=== PATIENT | female | born 1935 | race Caucasian/White ===

== ENCOUNTER 2016-03-29 16:33 | Inpatient (IN) | payer MEDICARE, OTHER ==
[~2016-03-29] VITALS: Ht 147.3 cm; Wt 54.7 kg
[~2016-03-29 16:33] MED LIST: ATEN-51 PO; KLO5 PO; LISI10TA2 PO
[2016-03-29 17:43] LABS: BASOPHILS % 0.6 % (0.0-2.0); EOSINOPHILS % 0.5 % (0.0-7.0); HEMOGLOBIN 13.2 g/dl (12.0-16.0); LYMPHOCYTES # 0.5 10^3/ul (0.8-2.9); LYMPHOCYTES % 5.9 % (15.0-51.0); MEAN CORPUSCULAR HEMOGLOBIN 29.8 pg (29.0-33.0); MEAN CORPUSCULAR HGB CONC 32.9 g/dl (32.0-37.0); MEAN CORPUSCULAR VOLUME 90.8 fl (82.0-101.0); MEAN PLATELET VOLUME 7.7 fl (7.4-10.4); MONOCYTE # 0.5 10^3/ul (0.3-0.9); MONOCYTES % 5.5 % (0.0-11.0); NEUTROPHIL # 7.6 10^3/ul (1.6-7.5); NEUTROPHILS % 87.5 % (39.0-77.0); PLATELET COUNT 235 10^3/UL (140-440); RED BLOOD COUNT 4.41 10^6/ul (4.20-5.40); RED CELL DISTRIBUTION WIDTH 14.4 % (11.5-14.5); UNCORRECTED WBC 8.7 10^3/ul (4.8-10.8); WHITE BLOOD COUNT 8.7 10^3/ul (4.8-10.8)
[2016-03-29 17:44] LABS: CONDITION 1
[2016-03-29 17:54] LABS: PROTIME 13.2 Sec (12.2-14.2)
[2016-03-29 17:55] LABS: PARTIAL THROMBOPLASTIN TIME 26.7 Sec (25.0-35.0)
[2016-03-29 17:57] LABS: CHLORIDE 101 mmol/L (97-110); POTASSIUM 4.7 mmol/L (3.5-5.1); SODIUM 143 mmol/L (135-144)
[2016-03-29 17:59] LABS: CREATININE 0.94 mg/dl (0.44-1.00)
[2016-03-29 18:00] LABS: ALANINE AMINOTRANSFERASE 48 IU/L (13-69); ALBUMIN/GLOBULIN RATIO 1.02; ALKALINE PHOSPHATASE 118 IU/L (42-121); ANION GAP 17 (8-16); ASPARTATE AMINO TRANSFERASE 34 IU/L (15-46); BILIRUBIN,INDIRECT 0.7 mg/dl (0-1.1); BILIRUBIN,TOTAL 0.7 mg/dl (0.2-1.3); BLOOD UREA NITROGEN 26 mg/dl (7-20); CALCIUM 9.5 mg/dl (8.4-10.2); CARBON DIOXIDE 30 mmol/L (21-31); GLUCOSE 144 mg/dl (70-220); TOTAL PROTEIN 7.9 g/dl (6.1-8.1)
[2016-03-29 18:03] LABS: ACETAMINOPHEN < 10.0 ug/ml (10.0-30.0); SALICYLATE < 1.0 mg/dl (5.0-30.0)
[2016-03-29 18:04] LABS: ETHANOL < 10.0 mg/dl
[2016-03-29 18:16] LABS: TROPONIN-I < 0.012 ng/ml (0.00-0.12)
--- NOTE | 2016-03-29 18:25 | RADRPT ---
PROCEDURE: XR Chest. CLINICAL INDICATION: Dyspnea TECHNIQUE: Single frontal chest x-ray. COMPARISON: None. FINDINGS: No acute infiltrate, pleural effusion or pneumothorax is identified. Cardiomediastinal silhouette i s within normal limits. Aortic atherosclerotic calcification is noted. The osseous structures are unremarkable. IMPRESSION: 1. No evidence of acute cardiopulmonary process. 2. Aortic atherosclerosis. RPTAT: PP .Kirk Truong MD, MD Date Time Electronically viewed and signed by .Kirk Truong MD, MD on 03/29/2016 18:24 .R/
--- NOTE | 2016-03-29 18:26 | RADRPT ---
PROCEDURE: XR Pelvis. CLINICAL INDICATION: Pain TECHNIQUE: Single AP view of the pelvis. COMPARISON: No prior studies are available for comparison. FINDINGS: No acute fracture or dislocation is identified. Mild retained fecal material may indicate constipat ion. Arterial atherosclerotic calcifications are noted. Bony mineralization is normal. There is n o radiodense foreign body. IMPRESSION: 1. No evidence of acute fracture or dislocation. 2. Mild retained fecal material, possibly indicating constipation. 3. Atherosclerosis. RPTAT: PP .Kirk Truong MD, MD Date Time Electronically viewed and signed by .Kirk Truong MD, on 03/29/2016 18:25 .R/
--- NOTE | 2016-03-29 18:27 | RADRPT ---
PROCEDURE: XR Hip. CLINICAL INDICATION: Pain TECHNIQUE: AP and frog lateral views of the bilateral hips were performed. COMPARISON: None. FINDINGS: No acute fracture or dislocation is identified. No significant joint space narrowing osteophyte for mation is seen. Mild retained fecal material is suggestive of constipation. Arterial atherosclerot ic calcifications are noted. There is no radiodense foreign body. Bony mineralization is normal. IMPRESSION: 1. No evidence of acute fracture or dislocation. RPTAT: PP .Kirk Truong MD, Date Time Electronically viewed and signed by .Kirk Truong MD, on 03/29/2016 18:27 .R/
--- NOTE | 2016-03-29 18:31 | RADRPT ---
PROCEDURE: CT Brain without contrast. CLINICAL INDICATION: Altered mental status TECHNIQUE: Axial images from the skull base through the vertex without IV contrast. Multiplanar r eformatted images were made. Images were reviewed on a PACS workstation. The CTDIvol is 41.44 mGy and the DLP is 720.23 mGycm. COMPARISON: 01/13/11 FINDINGS: There is atrophy and chronic microvascular ischemic change. There is no evidence for acute territor ial infarction or intracranial hemorrhage. No mass or midline shift is seen. No intra or extra-axi al fluid collection is seen. The visualized paranasal sinuses and mastoids are clear. The visualiz ed paranasal sinuses and mastoids are clear. Intracranial vascular calcification. IMPRESSION: Atrophy and chronic microvascular ischemic changes. No definite acute abnormality. RPTAT: [facility] Physician Ramirez Date Time Electronically viewed and signed by Physician Ramirez on 03/29/2016 18:31 KENTRELL/
[2016-03-29] MEDS ORDERED: LOSA25TA5 PO (18:34)
[2016-03-29] MEDS ORDERED: ASCO500C7 PO (18:37)
[2016-03-29] MEDS ORDERED: CHOL400T10 PO (18:37)
[2016-03-29] MEDS ORDERED: MULTI PO (18:38)
--- NOTE | 2016-03-29 18:39 | RADRPT ---
PROCEDURE: CT Cervical Spine. CLINICAL INDICATION: Trauma TECHNIQUE: Helical CT scanning which forms the basis for coronal and sagittal reformatted images. All CT scans at this facility use dose modulation, iterative reconstruction, and/or weight-based do sing when appropriate to reduce radiation dose to as low as reasonably achievable. The CTDIvol is 2 2.2 mGy and the DLP is 14 58.90 mGycm. COMPARISON: None. FINDINGS: There are mild degenerative changes throughout cervical spine with small osteophytes and minor endpl ate irregularities throughout. There is minimal grade 1 retrolisthesis of C3-4 and C5-6. Alignment otherwise anatomic. No prevertebral soft tissue swelling is seen. Small osteophyte - disk complex es are seen from C3-4 through C6-7. There is mild multilevel foraminal narrowing on a degenerative basis, most pronounced at C5-6 and C6-7 on the right. Carotid artery and aortic calcification. IMPRESSION: Degenerative change. No definite fracture. Clinical clearance of the cervical spine is still advis ed. RPTAT: [facility] Physician Ramirez Date Time Electronically viewed and signed by Anh Carrillo Physician on 03/29/2016 18:39 LE/
[2016-03-29 20:27] LABS: ADD UMIC YES; URINE BILIRUBIN (Dip) NEGATIVE (NEGATIVE); URINE BLOOD (Dip) TRACE (NEGATIVE); URINE COLOR YELLOW (YELLOW); URINE GLUCOSE (Dip) NEGATIVE (NEGATIVE); URINE KETONES (Dip) 15 (NEGATIVE); URINE LEUKOCYTE ESTERASE (Dip) 1+ (NEGATIVE); URINE NITRITE (Dip) NEGATIVE (NEGATIVE); URINE TOTAL PROTEIN (Dip) 2+ (NEGATIVE); URINE UROBILINOGEN (Dip) 0.2 E.U./dL (0.1-1.0)
[2016-03-29 20:45] LABS: BACTERIA,URINE MODERATE; URINE RBCS 0-2 /HPF (0)
[2016-03-29 20:47] LABS: SQUAMOUS EPITHELIAL CELL,UR MANY
--- NOTE | 2016-03-29 20:49 | ERA ---
ER Documentation Chief Complaint Date/Time DATE: 03/29/16 TIME: 20:41 Chief Complaint BIB RA FOR EVAL OF BEING MORE LETHARGIC. S/P FALL ON 03/24. CT DONE PRIOR HPI Patient was brought in by her family in by EMS for altered mental status. She apparently fell on [place] [address] and hit her head. Since then she has been lethargic and not herself. The family reports that normally she is ambulatory and walking around the house constantly. According to them she has been sleeping all the time. They state she is just not been herself and she will not get up and will not do things. She has not had any recurrent injuries. She is not taking any pain medications. Apparently she was across the way in orthopedic clinic getting her left shoulder evaluated when she had a fainting spell. This time however describes what sounds like could have been a seizure. She stiffened up and shook all over. This lasted for approximately 5-10 seconds. She was unresponsive afterwards and vomited once. He says his daughter had seizures and this is what it resembled. She herself does not have a history of seizures. She has not had any fevers, chest pain, shortness of breath, diarrhea. They do not know of any hip knee ankle injuries. And she has not had any recurrent head injuries since March 24. She was evaluated at that time with a head CT that was negative at an outside facility. ROS All systems reviewed and are negative except as per history of present illness. Medications Home Meds Reported Medications Multivitamins* (Theragran*) 1 Tab Tab, 1 TAB PO DAILY, TAB 03/29/16 Cholecalciferol* (Vitamin D*) Unknown Strength Tablet, UNIT PO DAILY, TAB 03/29/16 Ascorbic Acid* (Vitamin C*) 500 Mg Capsule.sa, 2000 MG PO DAILY, CAP 03/29/16 Losartan Potassium* (Losartan Potassium*) 25 Mg Tablet, 25 MG PO DAILY, TAB 03/29/16 Discontinued Reported Medications Lisinopril* (Lisinopril*) 10 Mg Tablet, 20 MG PO BID 06/03/13 Clonazepam* (Klonopin*) 0.5 Mg Tab, 0.5 MG PO DAILY, TAB 06/03/13 Atenolol* (Atenolol*) 25 Mg Tablet, 25 MG PO BID 06/03/13 Allergies Allergies: Coded Allergies: No Known Allergies (Verified Allergy, Mild, 03/29/16) PMhx/Soc History of Surgery: No Anesthesia Reaction: No Hx Neurological Disorder: No Hx Respiratory Disorders: No Hx Cardiac Disorders: Yes (HTN) Hx Psychiatric Problems: Yes (ANXIETY) Hx Miscellaneous Medical Probl: No Hx Alcohol Use: No Hx Substance Use: No Hx Tobacco Use: No Smoking Status: Never smoker FmHx Family History: No diabetes Physical Exam Vitals Vital Signs Date Time Temp Pulse Resp B/P Pulse Ox O2 Delivery O2 Flow Rate FiO2 03/29/16 17:20 Nasal Cannula 03/29/16 17:20 89 18 147/69 97 Room Air 03/29/16 16:49 98.0 100 17 185/90 99 Physical Exam Const: Pleasantly confused elderly lady on the bed in no apparent distress Head: Older contusion noted to the chin Eyes: Normal Conjunctiva ENT: Normal External Ears, Nose and Mouth. Neck: Full range of motion..~ No meningismus. Resp: Clear to auscultation bilaterally Cardio: Regular rate and rhythm, no murmurs Abd: Soft, non tender, non distended. Normal bowel sounds Skin: No petechiae or rashes Back: No midline or flank tenderness Ext: No cyanosis, or edema Neur: Awake and alert, confused, moves all extremities equally and nonfocal. Psych: Normal Mood and Affect Result Diagram: 03/29/16 1700 03/29/16 1700 Results 24 hrs Laboratory Tests Test 03/29/16 17:00 03/29/16 20:00 Acetaminophen Level < 10.0ug/ml Activated Partial Thromboplast Time 26.7Sec Alanine Aminotransferase (ALT/SGPT) 48IU/L Albumin 4.0g/dl Albumin/Globulin Ratio 1.02 Alkaline Phosphatase 118IU/L Anion Gap 17 Aspartate Amino Transf (AST/SGOT) 34IU/L Basophils # 0.010^3/ul Basophils % 0.6% Blood Urea Nitrogen 26mg/dl Calcium Level 9.5mg/dl Carbon Dioxide Level 30mmol/L Chloride Level 101mmol/L Creatinine 0.94mg/dl Direct Bilirubin 0.00mg/dl Eosinophils # 0.010^3/ul Eosinophils % 0.5% Ethyl Alcohol Level < 10.0mg/dl Globulin 3.90g/dl Glucose Level 144mg/dl Hematocrit 40.0% Hemoglobin 13.2g/dl INR International Normalized Ratio 1.00 Indirect Bilirubin 0.7mg/dl Lymphocytes # 0.510^3/ul Lymphocytes % 5.9% Mean Corpuscular Hemoglobin 29.8pg Mean Corpuscular Hemoglobin Concent 32.9g/dl Mean Corpuscular Volume 90.8fl Mean Platelet Volume 7.7fl Monocytes # 0.510^3/ul Monocytes % 5.5% Neutrophils # 7.610^3/ul Neutrophils % 87.5% Nucleated Red Blood Cells # 0.010^3/ul Nucleated Red Blood Cells % 0.0/100WBC Platelet Count 36744^3/UL Potassium Level 4.7mmol/L Prothrombin Time 13.2Sec Prothrombin Time Ratio 1.0 Red Blood Count 4.4110^6/ul Red Cell Distribution Width 14.4% Salicylates Level < 1.0mg/dl Sodium Level 143mmol/L Total Bilirubin 0.7mg/dl Total Protein 7.9g/dl Troponin I < 0.012ng/ml White Blood Count 8.710^3/ul Urine Bilirubin NEGATIVE Urine Clarity HAZY Urine Color YELLOW Urine Glucose NEGATIVE% Urine Hemoglobin TRACE Urine Ketones 15 Urine Leukocyte Esterase 1+ Urine Microscopic RBC Pending Urine Microscopic WBC Pending Urine Nitrite NEGATIVE Urine Specific [place] >=1.030 Urine Total Protein 2+ Urine Urobilinogen 0.2 E.U./dL Urine pH 6.0 Procedures/MDM EKG interpretation reveals a normal sinus rhythm at approximately 80 bpm. She has a right bundle branch block. No evidence for acute ischemia noted. No old EKG available for comparison. 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
[2016-03-29] MEDS ORDERED: ACETAMINOPHEN 325 MG TAB PO PRN (21:00)
[2016-03-29] MEDS ORDERED: ONDANSETRON 4 MG INJ IV PRN (21:00)
[2016-03-29 21:02] LABS: BARBITURATES NEGATIVE (NEGATIVE); BENZODIAZEPINES NEGATIVE (NEGATIVE); CANNABINOIDS POSITIVE (NEGATIVE); COCAINE NEGATIVE (NEGATIVE); OPIATES NEGATIVE (NEGATIVE)
--- NOTE | 2016-03-29 23:57 | HP ---
Date/Time of Note Date/Time of Note DATE: 03/29/16 TIME: 23:57 Assessment/Plan VTE Prophylaxis VTE Prophylaxis Intervention: SCD's Assessment/Plan Assessment/Plan 80 yo F with 1. Altered Mentation post fall 2. UTI 3. HTN: controlled 4. Chronic anxiety and dementia 5. ?marijuana user PLAN: admit for Syncopal work up to telemetry floor MRI brain/ 2D Echo/ Carotid dopplers/EEG Obtain Urine cultures and begin empiric abx for UTI IVF hydration / pain control/ antiemetics/ antipyretics/ supportive care Bedside swallow eval / PT eval and ST eval if indicated. Patient may require neurology consult if no improvement with above measures or MRI or EEG reveal abnormalities. Fall and seizure precautions Prophylaxis: SCDs and Pepcid Further evaluation and treatment will be based on clinical course Full discussion with care team done. All questions Answered Please also see orders. Total time spent on this evaluation >35mins HPI/ROS Admit Date/Time Admit Date/Time 03/29/16 Hx of Present Illness PRESENTING COMPLAINT: altered mentation HISTORY OF PRESENTING COMPLAINT: 80 yo F with known dementia but very active and ambulant usually who has declined in mental function since she sustained a fall on 03/24, 5 days ago. It was not witnessed and family just happened to come upon her on the floor. She has been evaluated multiple times since fall and was diagnosed with a shoulder dislocation that was reduced as outpt and her shoulder has been fine since. However, family continues to note a lack of return to baseline as evidenced by a lot of sleeping and not walking at all. She is able to move all extremities but is just more lethargic. All her neurologic imaging has been negative and outpt lab work non conclusive , Today, her son witnessed a few minutes of what seemed to him as a seizure. She stiffened up and shook all over. This lasted for approximately 5-10 seconds. She was unresponsive afterwards and vomited once , hence he brought her into the ER. Initial workup here is negative so far for neurologic injury or abnormality but concerning for probable UTI and Utox is positive for marijuana; however patient denies using marijuana, medicinal or otherwise. We will verify with family. She is being admitted for further workup and mgt. ROS 12 point review if systems was done and pertinent findings are as noted and limited by patient's baseline dementia and clinical state Constitutional: fatigue Cardiovascular: No chest pain Neurologic: confusion (chronic dementia) PMH/Family/Social Past Medical History * HTN * anxiety * Dementia Family History Significant Family History: no pertinent family hx Social History Alcohol Use: none Smoking Status: Never smoker Drug Use: marijuana Exam/Review of Systems Vital Signs Vitals Vital Signs Date Time Temp Pulse Resp B/P Pulse Ox O2 Delivery O2 Flow Rate FiO2 03/29/16 20:30 94 17 163/92 98 Room Air 03/29/16 16:49 98.0 Exam Exam Const: Pleasantly confused elderly lady on the bed in no apparent distress Head: Older contusion noted to the chin Eyes: Normal Conjunctiva ENT: Normal External Ears, Nose and Mouth. Neck: Full range of motion..~ No meningismus. Resp: Clear to auscultation bilaterally Cardio: Regular rate and rhythm, no murmurs Abd: Soft, non tender, non distended. Normal bowel sounds Skin: No petechiae or rashes Back: No midline or flank tenderness Ext: No cyanosis, or edema Neur: Awake and alert, confused, moves all extremities equally and nonfocal. Psych: Normal Mood and Affect Labs Result Diagram: 03/29/16 1700 03/29/16 1700 Procedures Procedures Laboratory Tests Test 03/29/16 17:00 03/29/16 20:00 Acetaminophen Level < 10.0ug/ml Activated Partial Thromboplast Time 26.7Sec Alanine Aminotransferase (ALT/SGPT) 48IU/L Albumin 4.0g/dl Albumin/Globulin Ratio 1.02 Alkaline Phosphatase 118IU/L Anion Gap 17 Aspartate Amino Transf (AST/SGOT) 34IU/L Basophils # 0.010^3/ul Basophils % 0.6% Blood Urea Nitrogen 26mg/dl Calcium Level 9.5mg/dl Carbon Dioxide Level 30mmol/L Chloride Level 101mmol/L Creatinine 0.94mg/dl Direct Bilirubin 0.00mg/dl Eosinophils # 0.010^3/ul Eosinophils % 0.5% Ethyl Alcohol Level < 10.0mg/dl Globulin 3.90g/dl Glucose Level 144mg/dl Hematocrit 40.0% Hemoglobin 13.2g/dl INR International Normalized Ratio 1.00 Indirect Bilirubin 0.7mg/dl Lymphocytes # 0.510^3/ul Lymphocytes % 5.9% Mean Corpuscular Hemoglobin 29.8pg Mean Corpuscular Hemoglobin Concent 32.9g/dl Mean Corpuscular Volume 90.8fl Mean Platelet Volume 7.7fl Monocytes # 0.510^3/ul Monocytes % 5.5% Neutrophils # 7.610^3/ul Neutrophils % 87.5% Nucleated Red Blood Cells # 0.010^3/ul Nucleated Red Blood Cells % 0.0/100WBC Platelet Count 69439^3/UL Potassium Level 4.7mmol/L Prothrombin Time 13.2Sec Prothrombin Time Ratio 1.0 Red Blood Count 4.4110^6/ul Red Cell Distribution Width 14.4% Salicylates Level < 1.0mg/dl Sodium Level 143mmol/L Total Bilirubin 0.7mg/dl Total Protein 7.9g/dl Troponin I < 0.012ng/ml White Blood Count 8.710^3/ul Urine Amphetamines Screen NEGATIVE Urine Bacteria MODERATE Urine Barbiturates NEGATIVE Urine Benzodiazepines Screen NEGATIVE Urine Bilirubin NEGATIVE Urine Cannabinoids POSITIVE Urine Clarity HAZY Urine Cocaine Screen NEGATIVE Urine Color YELLOW Urine Glucose NEGATIVE% Urine Hemoglobin TRACE Urine Ketones 15 Urine Leukocyte Esterase 1+ Urine Microscopic RBC 0-2/HPF Urine Microscopic WBC 10-25/HPF Urine Nitrite NEGATIVE Urine Opiates Screen NEGATIVE Urine Specific [place] >=1.030 Urine Squamous Epithelial Cells MANY Urine Total Protein 2+ Urine Urobilinogen 0.2 E.U./dL Urine pH 6.0 ER INTERVENTIONS Medications (Trade) Dose Ordered Sig/Sylwia Route PRN Reason Start Time Stop Time Status Last Admin Dose Admin Ondansetron HCl (Zofran Inj) 4 mg ER BRIDGE PRN IV NAUSEA AND/OR VOMITING 03/29/16 21:00 03/30/16 20:59 Acetaminophen (Tylenol Tab) 650 mg ER BRIDGE PRN PO MILD PAIN/FEVER 03/29/16 21:00 03/30/16 20:59 PROCEDURE: XR Hip. IMPRESSION: 1. No evidence of acute fracture or dislocation. 03/29/2016 18:27 PROCEDURE: XR Pelvis. IMPRESSION: 1. No evidence of acute fracture or dislocation. 2. Mild retained fecal material, possibly indicating constipation. 3. Atherosclerosis. 03/29/2016 18:25 PROCEDURE: CT Brain without contrast. IMPRESSION: Atrophy and chronic microvascular ischemic changes. No definite acute abnormality. 03/29/2016 18:31 PROCEDURE: CT Cervical Spine. IMPRESSION: Degenerative change. No definite fracture. 03/29/2016 18:39 PROCEDURE: XR Chest. IMPRESSION: 1. No evidence of acute cardiopulmonary process. 2. Aortic atherosclerosis. 03/29/2016 18:24 I reviewed EKG Rate: Within normal limits Rhythm: sinus Note: No ST elevation or depressions noted concerning for acute ischemic event. YASH ALVARADO Mar 29, 2016 23:57
[2016-03-30] MEDS: CEFTRIAXONE 1 GM/50 ML (PMX) 50 ML IVPB SCH ×2 (01:00→02:55)
[2016-03-30] MEDS ORDERED: ONDANSETRON 4 MG INJ IV PRN (01:00)
[2016-03-30] MEDS ORDERED: LORAZEPAM 2 MG INJ IV PRN (01:30)
[2016-03-30] MEDS: SOD CHLORIDE 0.9% 1,000 ML IV SCH ×3 (02:24→20:40)
[2016-03-30 06:40] LABS: BASOPHILS % 0.4 % (0.0-2.0); EOSINOPHILS # 0.1 10^3/ul (0.0-0.5); EOSINOPHILS % 2.2 % (0.0-7.0); HEMATOCRIT 34.2 % (37.0-47.0); HEMOGLOBIN 11.6 g/dl (12.0-16.0); LYMPHOCYTES % 15.3 % (15.0-51.0); MEAN CORPUSCULAR HEMOGLOBIN 30.4 pg (29.0-33.0); MEAN CORPUSCULAR HGB CONC 33.9 g/dl (32.0-37.0); MEAN CORPUSCULAR VOLUME 89.5 fl (82.0-101.0); MEAN PLATELET VOLUME 7.7 fl (7.4-10.4); MONOCYTE # 0.5 10^3/ul (0.3-0.9); MONOCYTES % 7.3 % (0.0-11.0); NEUTROPHIL # 4.7 10^3/ul (1.6-7.5); NEUTROPHILS % 74.8 % (39.0-77.0); PLATELET COUNT 202 10^3/UL (140-440); RED BLOOD COUNT 3.82 10^6/ul (4.20-5.40); RED CELL DISTRIBUTION WIDTH 13.7 % (11.5-14.5); UNCORRECTED WBC 6.3 10^3/ul (4.8-10.8); WHITE BLOOD COUNT 6.3 10^3/ul (4.8-10.8)
[2016-03-30 06:48] LABS: CONDITION 1
[2016-03-30 06:49] LABS: ALBUMIN 3.3 g/dl (3.3-4.9); POTASSIUM 4.1 mmol/L (3.5-5.1)
[2016-03-30 06:52] LABS: CREATININE 0.85 mg/dl (0.44-1.00); PHOSPHORUS 3.9 mg/dl (2.5-4.9)
[2016-03-30 06:53] LABS: MAGNESIUM 1.9 mg/dl (1.7-2.5)
--- NOTE | 2016-03-30 10:14 | RADRPT ---
PROCEDURE: Carotid ultrasound CLINICAL INDICATION: Syncope, carotid bruits TECHNIQUE: Aparicio scale, color doppler, spectral doppler ultrasound of the bilateral carotid and bela tebral arteries. COMPARISON: No prior studies are available for comparison. FINDINGS: Location Right CCA52 cm/sec Prox ICA 45 cm/sec Mid ICA34 cm/sec Dist ICA27 cm/sec ECA74 cm/sec ICA/CCA0.9 Left CCA61 cm/sec Prox ICA 39 cm/sec Mid ICA44 cm/sec Dist ICA83 cm/sec ECA68 cm/sec ICA/CCA1.4 Plaque burden: A minimal amount of plaque is present within the visualized portions of both internal carotid arteries however there is no evidence of flow acceleration to suggest a hemodynamically sig nificant stenosis. Antegrade flow is seen within the vertebral arteries bilaterally. IMPRESSION: A minimal amount of plaque is present within the visualized portions of both internal carotid arteri es however there is no evidence of flow acceleration to suggest a hemodynamically significant stenos is. RPTAT: AADD .Santhosh Trevino MD, MD Date Time Electronically viewed and signed by .Santhosh Trevino MD, on 03/30/2016 10:14 .B/
[2016-03-30] MEDS: FAMOTIDINE 20 MG INJ IV SCH (11:05)
--- NOTE | 2016-03-30 12:43 | RADRPT ---
Echocardiogram Report Patient Name: LEIDY KERNS Gender: Female Date: 1935 Study Date: 30-Mar-2016 Buckler And Lacer: Ian Colon RDCS Location: 9 Ref. Physician: YASH ALVARADO Quality: Adequate Procedures: Transthoracic echocardiogram with complete 2D, M-Mode, and doppler examination. Indications: Syncope. 2D/M Mode Doppler Measurement Value Normal Ranges Measurement Value Normal Ranges LVIDd 2D 4.4 3.5 - 5.6 cm AV Peak Fermin 1.2 m/sec LVIDs 2D 2.3 2.1 - 4.1 cm AV Peak PG 5.6 mmHg LVPWd 2D 1.0 0.6 - 1.1 cm LVOT Peak Fermin 1.1 m/sec IVSd 2D 0.8 0.6 - 1.1 cm LVOT Peak PG 4.9 mmHg AoR Diam 2D 2.6 2.0 - 3.7 cm MV E Peak Fermin 0.8 m/sec EDV 2D 88.3 cm3 MV A Peak Fermin 1.0 m/sec ESV 2D 11.8 cm3 MV E/A 0.8 LA Dimen 2D 3.1 2.3 - 4.0 cm MV Decel Time 202 msec MV Decel Bond 4 MV E/A 0.8 TR Peak Fermin 2.7 m/sec TR Peak PG 30.1 mmHg RVSP 33.0 mmHg Findings Left Ventricle: Normal left ventricular systolic function. Normal left ventricular cavity size. Mild concentric left ventricular hypertrophy. Ejection fraction is visually estimated at 65 %. Tissue Doppler/Mitral Doppler indices are consistent with impaired relaxation (Stage I diastolic dysfunction). Right Ventricle: Normal right ventricular size. Normal right ventricular systolic function. Left Atrium: The left atrium is normal in size. Right Atrium: The right atrium is normal in size. Mitral Valve: Normal appearance of the mitral valve. Mild mitral annular calcification. Trace mitral regurgitation. Aortic Valve: Normal appearance of the aortic valve. No significant aortic stenosis or insufficiency. Tricuspid Valve: Normal appearance and function of the tricuspid valve with trace physiologic regurgitation. Estimated peak PA systolic pressure 33 mmHg. Pericardium: Normal pericardium with no significant pericardial effusion. Aorta: Normal aortic root. IVC: The IVC is not well visualized. Conclusions 1.Normal left ventricular systolic function. Normal left ventricular cavity size. Mild concentric left ventricular hypertrophy. Ejection fraction is visually estimated at 65 %. Tissue Doppler/Mitral Doppler indices are consistent with impaired relaxation (Stage I diastolic dysfunction). 2.Normal right ventricular size. Normal right ventricular systolic function. 3.The left atrium is normal in size. 4.The right atrium is normal in size. 5.No significant valvular stenosis or regurgitation seen. 6.Normal pericardium with no significant pericardial effusion. Electronically Signed By: Lamont Gould 30-Mar-2016 12:42:56 -0800 Patient Name: LEIDY KERNS Study Date: 30-Mar-2016 [id number]
[2016-03-30] MEDS ORDERED: AMOXICILLIN 500 MG CAP PO SCH (14:00)
[2016-03-30] MEDS: LOSARTAN 25 MG TAB PO SCH (14:37)
[2016-03-30] MEDS: NITROFURANTOIN (SR) 100 MG CAP PO SCH ×2 (14:37→23:44)
--- NOTE | 2016-03-30 16:19 | RADRPT ---
PROCEDURE: MRI Brain without contrast. CLINICAL INDICATION: Syncope. TECHNIQUE: An MRI of the brain was performed utilizing the following sequences: Sagittal and axial T1 weighted, axial T2 weighted, axial diffusion weighted with ADC mapping, coronal GRE, and axial F LAIR. COMPARISON: Brain CT 03/29/2016. FINDINGS: No diffusion weighted abnormalities are seen to suggest the presence of acute ischemia or recent inf arct. No hypointense signal abnormalities are seen on the GRE images to suggest the presence of blo od degradation products. There is no evidence of intracranial hemorrhage, mass effect, or midline s hift. No extra-axial fluid collections are seen. The ventricles and sulci are moderately to markedly enlarged indicative of volume loss including bilateral hippocampal atrophy, right greater than left . There are moderate confluent foci of T2 FLAIR hyperintensity in the periventricular, deep, and subco rtical white matter, which are nonspecific in etiology but likely reflect chronic small vessel ische susie changes. No abnormal intracranial vascular flow void is noted. The visualized paranasal sinuses demonstrate m ild mucosal thickening mainly in ethmoid air cells. IMPRESSION: 1. No acute intracranial hemorrhage, infarction or mass. 2. Moderate chronic small vessel ischemic changes. 3. Moderate to more generalized cerebral volume loss, including bilateral hippocampal atrophy, righ t greater than left. RPTAT: UU .Won Lopez MD, Date Time Electronically viewed and signed by .Won Lopez MD, MD on 03/30/2016 16:19 .N/
--- NOTE | 2016-03-30 16:45 | PN ---
DATE: 03/30/2016 SUBJECTIVE DATA: The patient's brain MRI was canceled today since the patient was nauseous and vomiting prior to the procedure awaiting electroencephalography. OBJECTIVE DATA: VITAL SIGNS: Temperature 98.5, pulse rate 82, respiratory rate 16, blood pressure 158/81, oxygen saturation 95% on room air. GENERAL: This is an elderly female lying in bed in no apparent distress. HEENT: Head normocephalic and atraumatic. Eyes: Anicteric sclerae. Conjunctivae clear. ENT: Nasal septum is midline. Oral mucosa is dry. NECK: Supple. No JVD noticed. EXTREMITIES: No cyanosis, no edema. Bilateral lower extremity peripheral pulses palpable. NEUROLOGIC: The patient is somnolent. LABORATORY AND DIAGNOSTIC DATA: WBC 6.3, hemoglobin 11.6, hematocrit 34.2, platelet count 202. Sodium 139, potassium 4.1, chloride 101, carbon dioxide 26 , anion gap 16, BUN 25, creatinine 0.82, glucose 126, calcium 9.0, phosphorus 3.9, magnesium 1.9. ASSESSMENT AND PLAN: 1. Acute encephalopathy in a patient with underlying dementia. Etiology unclear. Brain CT scan negative for any acute intracranial findings. Pending brain MRI. Cervical spine CT shows degenerative changes. Carotid Doppler study showing no hemodynamically significant stenosis or occlusion. A 2D echocardiogram showed preserved left ventricular ejection fraction. Pending brain MRI and electroencephalography. 2. Positive urinalysis. Possibly urinary tract infection. The patient will be maintained on appropriate antibiotics. Will await final urine cultures. 3. Recent left shoulder dislocation. The patient's left upper extremity will be maintained in a sling. 4. Essential hypertension. The patient will be maintained on routine antihypertensives. The patient will also be started on p.r.n. antihypertensives for any systolic blood pressure readings greater than 160 mmHg. 5. Possible underlying seizures. EEG pending. 6. Fluid, electrolytes and nutrition. The patient will be maintained on a low cholesterol diet. However, Speech Therapy evaluation will be ordered to evaluate for an underlying dysphagia. The patient will be fed only if the patient is completely awake and alert. 7. Deep venous thrombosis prophylaxis with bilateral sequential compression devices. 8. Gastrointestinal prophylaxis with histamine2 receptor blockers. PLAN: Continue on current care. Await brain MRI and electroencephalography. Await final urine cultures. Case discussed with Dr. Naghdechi. Plan of care was explained to the patient's family who was at the bedside. Discussed the case with the patient's RN. WALLY CID MD, AM/ARNOL Conf#: [id number] DID#: [id number] MTDD
[2016-03-30 17:10] VITALS: TEMP 98.5
[2016-03-30 18:28] VITALS: PULSE 72
[2016-03-30 18:30] VITALS: BP 184/93; PULSE 79; RESP 16
[2016-03-30 19:06] VITALS: Ht 147.3 cm; Wt 54.7 kg
[2016-03-30 20:00] VITALS: BP 197/98; PULSE 66; RESP 20
[2016-03-30] MEDS: hydrALAzine 20 MG INJ IV PRN (23:44)
[2016-03-31] VITALS (12 sets, daily range): BP systolic 129–204; BP diastolic 65–99; PULSE 82–116; RESP 17–20
[2016-03-31 06:27] LABS: BASOPHILS % 0.5 % (0.0-2.0); EOSINOPHILS # 0.1 10^3/ul (0.0-0.5); HEMATOCRIT 32.4 % (37.0-47.0); HEMOGLOBIN 10.9 g/dl (12.0-16.0); LYMPHOCYTES # 0.6 10^3/ul (0.8-2.9); LYMPHOCYTES % 11.4 % (15.0-51.0); MEAN CORPUSCULAR HEMOGLOBIN 30.2 pg (29.0-33.0); MEAN CORPUSCULAR HGB CONC 33.8 g/dl (32.0-37.0); MEAN CORPUSCULAR VOLUME 89.3 fl (82.0-101.0); MEAN PLATELET VOLUME 7.6 fl (7.4-10.4); MONOCYTE # 0.4 10^3/ul (0.3-0.9); MONOCYTES % 8.1 % (0.0-11.0); NEUTROPHIL # 4.4 10^3/ul (1.6-7.5); PLATELET COUNT 216 10^3/UL (140-440); RED BLOOD COUNT 3.63 10^6/ul (4.20-5.40); RED CELL DISTRIBUTION WIDTH 14.4 % (11.5-14.5); UNCORRECTED WBC 5.6 10^3/ul (4.8-10.8); WHITE BLOOD COUNT 5.6 10^3/ul (4.8-10.8)
[2016-03-31 06:33] LABS: CONDITION 1
[2016-03-31 06:34] LABS: ALBUMIN 3.1 g/dl (3.3-4.9)
[2016-03-31 06:37] LABS: BILIRUBIN,INDIRECT 0.4 mg/dl (0-1.1); BILIRUBIN,TOTAL 0.4 mg/dl (0.2-1.3); CREATININE 0.96 mg/dl (0.44-1.00); TOTAL PROTEIN 6.2 g/dl (6.1-8.1)
[2016-03-31 06:38] LABS: CALCIUM 8.6 mg/dl (8.4-10.2)
[2016-03-31 06:45] LABS: CREATININE 0.94 mg/dl (0.44-1.00)
[2016-03-31 06:46] LABS: CALCIUM 8.5 mg/dl (8.4-10.2); PHOSPHORUS 3.6 mg/dl (2.5-4.9)
[2016-03-31] MEDS: SOD CHLORIDE 0.9% 1,000 ML IV SCH ×2 (07:00→17:30)
[2016-03-31 07:09] LABS: MAGNESIUM 1.8 mg/dl (1.7-2.5)
[2016-03-31 07:10] LABS: CHOL/HDL RATIO 4.4 RATIO
[2016-03-31 07:40] LABS: THYROID STIMULATING HORMONE 1.77 MIU/L (0.465-4.680)
[2016-03-31] MEDS: FAMOTIDINE 20 MG INJ IV SCH (09:47)
[2016-03-31] MEDS: NITROFURANTOIN (SR) 100 MG CAP PO SCH ×2 (09:47→20:52)
[2016-03-31] MEDS: LOSARTAN 25 MG TAB PO SCH (09:48)
--- NOTE | 2016-03-31 12:38 | PN ---
Date/Time of Note Date/Time of Note DATE: 03/31/16 TIME: 12:34 Assessment/Plan VTE Prophylaxis VTE Prophylaxis Intervention: other Lines/Catheters IV C[facility]ter Type (from [facility]): Peripheral IV Urinary Cath still in place: No Assessment/Plan Problems: (1) Essential hypertension Status: Chronic Comment: Her blood pressure is up modestly. According to the family she had been placed on amlodipine but developed lower extremity edema without medication. She has recently been placed on very low-dose losartan. I am going to up titrate that dose if necessary adding very low-dose hydrochlorothiazide to augment this. (2) Altered level of consciousness Status: Acute Comment: She actually is arousable to me. There are a couple of features going on here. She had previously been on benzodiazepines but I do not believe recently. The family however gives her medical marijuana twice a day to help keep her calm. This is done for anxiety disorder. When I attempted to explain to the family that this is actually likely to aggravate anxiety disorder the would have none of it. For now an EEG has been done but the results are pending and will have neurology see her in consultation. A further future may be that the gram-negative rods in the urine may also be throwing her off given her advanced age and underlying organic brain syndrome. (3) Dementia Status: Acute Comment: This diagnosis is listed in the chart. I will add in some final testing just to make sure although he had full imaging. 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 Subjective 24 Hr Interval Summary Free Text/Dictation Patient sleeping but responds to questioning in Romansh Constitutional: no complaints Respiratory: no complaints Cardiovascular: no complaints Gastrointestinal: no complaints Exam/Review of Systems Vital Signs Vitals Vital Signs Date Time Temp Pulse Resp B/P Pulse Ox O2 Delivery O2 Flow Rate FiO2 03/31/16 12:11 83 03/31/16 12:00 98.9 17 178/99 93 03/31/16 04:00 Room Air Exam Arousable easily oriented times person not place or time Head: other (Right lateral jaw hematoma consistent with the trauma reported in the notes.) ENMT: other (No carotid bruits) Neck: non-tender, supple Respiratory: clear to auscultation, normal air movement Cardiovascular: nl pulses, regular rate and rhythm Gastrointestinal: nl liver, spleen, non-tender, soft Results Result Diagram: 03/31/1636 03/31/16 0536 Results 24 hrs Laboratory Tests Test 03/31/16 05:11 03/31/16 05:36 Albumin 3.0 L 3.1 L Anion Gap 14 16 Blood Urea Nitrogen 22 H 21 H Calcium Level 8.5 8.6 Carbon Dioxide Level 26 26 Chloride Level 107 107 Creatinine 0.94 0.96 Glucose Level 117 118 Phosphorus Level 3.6 Potassium Level 4.0 4.0 Sodium Level 143 145 H Alanine Aminotransferase (ALT/SGPT) 28 Albumin/Globulin Ratio 1.00 Alkaline Phosphatase 84 Ammonia < 9 L Amylase Level 110 Aspartate Amino Transf (AST/SGOT) 23 Basophils # 0.0 Basophils % 0.5 Cholesterol Level 164 Cholesterol/HDL Ratio 4.4 Direct Bilirubin 0.00 Eosinophils # 0.1 Eosinophils % 1.0 Free Thyroxine 1.32 Globulin 3.10 HDL Cholesterol 37 Hematocrit 32.4 L Hemoglobin 10.9 L Hemoglobin A1c 5.6 Indirect Bilirubin 0.4 LDL Cholesterol, Calculated 115 Lipase 271 Lymphocytes # 0.6 L Lymphocytes % 11.4 L Magnesium Level 1.8 Mean Corpuscular Hemoglobin 30.2 Mean Corpuscular Hemoglobin Concent 33.8 Mean Corpuscular Volume 89.3 Mean Platelet Volume 7.6 Monocytes # 0.4 Monocytes % 8.1 Neutrophils # 4.4 Neutrophils % 79.0 H Nucleated Red Blood Cells # 0.0 Nucleated Red Blood Cells % 0.0 Platelet Count 216 Red Blood Count 3.63 L Red Cell Distribution Width 14.4 Thyroid Stimulating Hormone (TSH) 1.770 Total Bilirubin 0.4 Total Protein 6.2 # Triglycerides Level 62 White Blood Count 5.6 Medications Medications Current Medications Sodium Chloride (NS) 1,000 ml @ 100 mls/hr Q10H IV Last administered on at 07:00; Admin Dose 100 MLS/HR; Start 03/30/16 at 01:00 Hydralazine HCl (Apresoline) 10 mg Q6H PRN IV sbp>160mmhg Last administered on 03/30/16at 23:44; Admin Dose 10 MG; Start 03/30/16 at 01:00 Ondansetron HCl (Zofran Inj) 4 mg Q6H PRN IV NAUSEA AND/OR VOMITING; Start at 01:00 Famotidine (Pepcid Iv) 20 mg DAILY IV Last administered on 03/31/16at 09:47; Admin Dose 20 MG; Start 03/30/16 at 09:00 Lorazepam (Ativan) 2 mg Q4H PRN IV seizures ONLY; Start 03/30/16 at 01:30 Nitrofurantoin Macrocrystals (Macrobid) 100 mg BID PO Last administered on at 09:47; Admin Dose 100 MG; Start 03/30/16 at 14:30 Losartan Potassium (Cozaar) 25 mg DAILY PO Last administered on 03/31/16at 09: 48; Admin Dose 25 MG; Start 03/30/16 at 14:30 LAN GROVES MD Mar 31, 2016 12:38
[2016-03-31] MEDS: hydrALAzine 20 MG INJ IV PRN ×2 (15:51→22:41)
--- NOTE | 2016-03-31 16:09 | CONS ---
Date/Time of Note Date/Time of Note DATE: 03/31/16 TIME: 15:57 Assessment/Plan Assessment/Plan Chief Complaint/Hosp Course Seizure activity Problems: Additional Assessment/Plan 80 yo F with history of dementia after she sustained a fall on 03/24 sustaining left shoulder dislocation. She had an episode of stiffening and eyes rolled up, symptoms lasted about 10 seconds. Her workup showed Utox is positive for marijuana as per patient's Son she takes Marijuana Oil every night for sleep. PLAN: 1 Start on Keppra 250 mg po bid 2 Seizure precautions 3 DC planning for AM 4 Discussed with patient's Son in datail who is present in the room. Consultation Date/Type/Reason Admit Date/Time 03/29/16 Date of Consultation: Mar 31, 2016 Type of Consultation: Neurology Reason for Consultation Episodes of seizure activity and history of Dementia Referring Provider: YASH ALVARADO Hx of Present Illness 80 yo F with history of dementia, but very active and ambulant usually who has declined in mental function since she sustained a fall on 03/24, It was not witnessed and family just happened to come upon her on the floor. She was taken to [facility] and was evaluated. She was found to have left shoulder dislocation and was reduced as outpatient and her shoulder has been fine since. She had an appontment at [facility] and had an episode of stiffening and eyes rolled up, symptoms lasted about 10 seconds. Her workup showed Utox is positive for marijuana as per patient's Son she takes Marijuana Oil every night for sleep. Constitutional: no complaints Eyes: no complaints ENT: no complaints Respiratory: no complaints Cardiovascular: no complaints Gastrointestinal: no complaints Genitourinary: no complaints Musculoskeletal: no complaints Skin: no complaints Neurologic: confusion (chronic dementia) Endocrine: no complaints Lymphatic: no complaints Psychological: nl mood/affect, no complaints Immunologic: no complaints Past Medical History Medical History: other (Dementia) Social History Alcohol Use: none Smoking Status: Never smoker Drug Use: marijuana Exam/Review of Systems Vital Signs Vitals Vital Signs Date Time Temp Pulse Resp B/P Pulse Ox O2 Delivery O2 Flow Rate FiO2 03/31/16 12:11 83 03/31/16 12:00 98.9 17 178/99 93 03/31/16 04:00 Room Air Exam Constitutional: alert, well developed Psych: nl mood/affect, no complaints Head: atraumatic, normocephalic Eyes: EOMI, nl conjunctiva, nl lids ENMT: nl external ears & nose, nl lips & teeth, nl nasal mucosa & septum Neck: non-tender, supple Respiratory: clear to auscultation, normal air movement Cardiovascular: nl pulses, regular rate and rhythm Gastrointestinal: nl liver, spleen, non-tender, soft Musculoskeletal: nl extremities to inspection Extremities: normal pulses Neurological: [employer] II-XII intact, nl speech Skin: nl turgor, rash or lesions Lymph: nl lymph nodes Results Result Diagram: 03/31/1636 03/31/1636 Results 24 hrs Laboratory Tests Test 03/31/16 05:11 03/31/16 05:36 Albumin 3.0 L 3.1 L Anion Gap 14 16 Blood Urea Nitrogen 22 H 21 H Calcium Level 8.5 8.6 Carbon Dioxide Level 26 26 Chloride Level 107 107 Creatinine 0.94 0.96 Glucose Level 117 118 Phosphorus Level 3.6 Potassium Level 4.0 4.0 Sodium Level 143 145 H Alanine Aminotransferase (ALT/SGPT) 28 Albumin/Globulin Ratio 1.00 Alkaline Phosphatase 84 Ammonia < 9 L Amylase Level 110 Aspartate Amino Transf (AST/SGOT) 23 Basophils # 0.0 Basophils % 0.5 Cholesterol Level 164 Cholesterol/HDL Ratio 4.4 Direct Bilirubin 0.00 Eosinophils # 0.1 Eosinophils % 1.0 Free Thyroxine 1.32 Globulin 3.10 HDL Cholesterol 37 Hematocrit 32.4 L Hemoglobin 10.9 L Hemoglobin A1c 5.6 Indirect Bilirubin 0.4 LDL Cholesterol, Calculated 115 Lipase 271 Lymphocytes # 0.6 L Lymphocytes % 11.4 L Magnesium Level 1.8 Mean Corpuscular Hemoglobin 30.2 Mean Corpuscular Hemoglobin Concent 33.8 Mean Corpuscular Volume 89.3 Mean Platelet Volume 7.6 Monocytes # 0.4 Monocytes % 8.1 Neutrophils # 4.4 Neutrophils % 79.0 H Nucleated Red Blood Cells # 0.0 Nucleated Red Blood Cells % 0.0 Platelet Count 216 Red Blood Count 3.63 L Red Cell Distribution Width 14.4 Thyroid Stimulating Hormone (TSH) 1.770 Total Bilirubin 0.4 Total Protein 6.2 # Triglycerides Level 62 White Blood Count 5.6 Medications Medications Current Medications Sodium Chloride (NS) 1,000 ml @ 100 mls/hr Q10H IV Last administered on at 07:00; Admin Dose 100 MLS/HR; Start 03/30/16 at 01:00 Hydralazine HCl (Apresoline) 10 mg Q6H PRN IV sbp>160mmhg Last administered on 03/31/16at 15:51; Admin Dose 10 MG; Start 03/30/16 at 01:00 Ondansetron HCl (Zofran Inj) 4 mg Q6H PRN IV NAUSEA AND/OR VOMITING; Start at 01:00 Famotidine (Pepcid Iv) 20 mg DAILY IV Last administered on 03/31/16at 09:47; Admin Dose 20 MG; Start 03/30/16 at 09:00 Lorazepam (Ativan) 2 mg Q4H PRN IV seizures ONLY; Start 03/30/16 at 01:30 Nitrofurantoin Macrocrystals (Macrobid) 100 mg BID PO Last administered on at 09:47; Admin Dose 100 MG; Start 03/30/16 at 14:30 Losartan Potassium (Cozaar) 50 mg DAILY PO ; Start 04/01/16 at 09:00 Procedures Procedures 03/29/16 CT brain FINDINGS: There is atrophy and chronic microvascular ischemic change. There is no evidence for acute territorial infarction or intracranial hemorrhage. No mass or midline shift is seen. No intra or extra-axial fluid collection is seen. The visualized paranasal sinuses and mastoids are clear. The visualized paranasal sinuses and mastoids are clear. Intracranial vascular calcification. IMPRESSION: Atrophy and chronic microvascular ischemic changes. No definite acute abnormality. RPTAT: [facility] Physician Ramirez Date Time Electronically viewed and signed by Anh Carrillo Physician on 03/29/2016 18 :31 03/30/16 MRI of brain IMPRESSION: 1. No acute intracranial hemorrhage, infarction or mass. 2. Moderate chronic small vessel ischemic changes. 3. Moderate to more generalized cerebral volume loss, including bilateral hippocampal atrophy, right greater than left. RPTAT: [facility] .Won Lopez MD, Date Time Electronically viewed and signed by .Won Lopez MD, on 03/30/2016 16: 19 03/30/16 Carotid ultrasound IMPRESSION: A minimal amount of plaque is present within the visualized portions of both internal carotid arteries however there is no evidence of flow acceleration to suggest a hemodynamically significant stenosis. RPTAT: [facility]ADD .Santhosh Trevino MD, MD Date Time Electronically viewed and signed by .Santhosh rTevino MD, MD on 03/30/2016 10:14 COLIN DAVIS MD Mar 31, 2016 16:07
--- NOTE | 2016-03-31 18:50 | NEURPT ---
DATE: 03/31/2016 ELECTROENCEPHALOGRAPHIC REPORT HISTORY: This is an 80-year-old woman who was admitted following 2 episodes of seizure activity, as sociated with tongue biting and stiffness. CURRENT MEDICATIONS 1. Macrobid. 2. Cozaar. 3. Pepcid. 4. Apresoline. PROCEDURE: Utilizing a 16-channel EEG machine, cap scalp electrodes were applied in accordance with International 10-20 system. [id number], [id number] montages were displayed. Electrical impe dances were measured and reported. DESCRIPTION: During the resting state, posterior dominant rhythm of about 7 to 8 Hz were seen bihem ispherically. Photic stimulation and hyperventilation were not performed. EMG artifact was noted a t times. Left frontal sharp waves were seen at times during the tracing. INTERPRETATION: This is an abnormal EEG because of generalized bihemispheric background slowing, wi th left frontal sharps, which could be epileptogenic. Please correlate these findings with patient' s clinical picture. Dictated By: COLIN ROCK/ARNOL Conf#: [id number] DID#: [id number]
[2016-03-31] MEDS: LEVETIRACETAM 250 MG TAB PO SCH (20:51)
[2016-03-31] MEDS: METOPROLOL (XL) 25 MG TAB PO SCH (20:52)
[2016-04-01] VITALS (14 sets, daily range): BP systolic 125–187; BP diastolic 59–95; PULSE 62–107; RESP 16–20
[2016-04-01] MEDS ORDERED: LOSARTAN 50 MG TAB PO SCH (09:00)
[2016-04-01] MEDS: METOPROLOL (XL) 25 MG TAB PO SCH ×2 (09:51→21:23)
[2016-04-01] MEDS: FAMOTIDINE 20 MG INJ IV SCH (09:51)
[2016-04-01] MEDS: LEVETIRACETAM 250 MG TAB PO SCH ×2 (09:52→21:23)
[2016-04-01] MEDS: NITROFURANTOIN (SR) 100 MG CAP PO SCH ×2 (09:52→21:23)
[2016-04-01 10:58] LABS: BASOPHILS % 0.6 % (0.0-2.0); EOSINOPHILS # 0.1 10^3/ul (0.0-0.5); HEMATOCRIT 36.5 % (37.0-47.0); HEMOGLOBIN 12.1 g/dl (12.0-16.0); LYMPHOCYTES # 1.9 10^3/ul (0.8-2.9); MEAN CORPUSCULAR HEMOGLOBIN 29.9 pg (29.0-33.0); MEAN CORPUSCULAR HGB CONC 33.2 g/dl (32.0-37.0); MEAN PLATELET VOLUME 7.8 fl (7.4-10.4); MONOCYTE # 0.5 10^3/ul (0.3-0.9); MONOCYTES % 8.7 % (0.0-11.0); NEUTROPHIL # 3.5 10^3/ul (1.6-7.5); NEUTROPHILS % 57.7 % (39.0-77.0); PLATELET COUNT 221 10^3/UL (140-440); RED BLOOD COUNT 4.06 10^6/ul (4.20-5.40); RED CELL DISTRIBUTION WIDTH 14.2 % (11.5-14.5); UNCORRECTED WBC 6.1 10^3/ul (4.8-10.8); WHITE BLOOD COUNT 6.1 10^3/ul (4.8-10.8)
[2016-04-01 11:05] LABS: CONDITION 1
[2016-04-01 11:20] LABS: ALBUMIN 3.5 g/dl (3.3-4.9)
[2016-04-01 11:22] LABS: CREATININE 0.78 mg/dl (0.44-1.00)
[2016-04-01 11:23] LABS: CALCIUM 9.3 mg/dl (8.4-10.2); PHOSPHORUS 3.4 mg/dl (2.5-4.9)
[2016-04-01] MEDS: hydrALAzine 20 MG INJ IV PRN (11:35)
[2016-04-01] MEDS ORDERED: CHLORTHALIDONE 25 MG TAB PO ONE (12:00)
--- NOTE | 2016-04-01 12:11 | PN ---
Date/Time of Note Date/Time of Note DATE: 04/01/16 TIME: 12:04 Assessment/Plan VTE Prophylaxis VTE Prophylaxis Intervention: other Lines/Catheters IV Catheter Type (from [facility]): Peripheral IV Urinary Cath still in place: No Assessment/Plan Problems: (1) UTI (urinary tract infection) Status: Acute Comment: Culture does demonstrate sensitivity to nitrofurantoin that the patient is being treated with should be on this for a brief period of time when she goes home Qualifiers: Urinary tract infection type: acute cystitis Hematuria presence: without hematuria Qualified Code: N30.00 - Acute cystitis without hematuria (2) Altered level of consciousness Status: Chronic Comment: This may be contributed by some social features including non-hospital -based pharmaceuticals being given to the patient I have counseled both of the patient's daughters now that this is not to happen in the facility again or they will be asked to not come in to the facility (3) Difficulty walking Status: Chronic Comment: Family reports they ordered a walker for the patient are requesting to take a hospital walker for a brief period of time and then come bring it back later. Social work and case management is attempting to work with him (4) Dementia Status: Acute Comment: Noted 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 Subjective 24 Hr Interval Summary Free Text/Dictation Please see nursing notes for the events overnight especially at midnight. Patient is extremely somnolent. The family reports that they have not given her any marijuana products in the hospital. Addendum the daughter she lives with reports that she did administer medicines specifically marijuana products this morning Subjective hx not possible: pt non-verbal Exam/Review of Systems Vital Signs Vitals Vital Signs Date Time Temp Pulse Resp B/P Pulse Ox O2 Delivery O2 Flow Rate FiO2 04/01/16 11:42 71 177/77 04/01/16 08:16 99.4 18 97 03/31/16 21:00 2.0 03/31/16 04:00 Room Air Intake and Output 03/31/16 03/31/16 04/01/16 15:00 23:00 07:00 Intake Total 1440 ml 200 ml Balance 1440 ml 200 ml Exam Somnolent difficult to arouse Neck: non-tender, supple Respiratory: clear to auscultation, normal air movement Cardiovascular: nl pulses, regular rate and rhythm Gastrointestinal: nl liver, spleen, non-tender, soft Results Result Diagram: 04/01/16 1010 04/01/16 1011 Results 24 hrs Laboratory Tests Test 03/31/16 15:10 04/01/16 10:10 04/01/16 10:11 Hepatitis B Surface Antigen NEGATIVE Hepatitis C Antibody NEGATIVE Rapid Plasma Reagin NONREACTIVE Basophils # 0.0 Basophils % 0.6 Eosinophils # 0.1 Eosinophils % 2.0 Hematocrit 36.5 L Hemoglobin 12.1 Lymphocytes # 1.9 Lymphocytes % 31.0 Mean Corpuscular Hemoglobin 29.9 Mean Corpuscular Hemoglobin Concent 33.2 Mean Corpuscular Volume 90.0 Mean Platelet Volume 7.8 Monocytes # 0.5 Monocytes % 8.7 Neutrophils # 3.5 Neutrophils % 57.7 Nucleated Red Blood Cells # 0.0 Nucleated Red Blood Cells % 0.0 Platelet Count 221 Red Blood Count 4.06 L Red Cell Distribution Width 14.2 White Blood Count 6.1 Albumin 3.5 Anion Gap 15 Blood Urea Nitrogen 18 Calcium Level 9.3 Carbon Dioxide Level 23 Chloride Level 107 Creatinine 0.78 Glucose Level 98 Phosphorus Level 3.4 Potassium Level 4.0 Sodium Level 141 Medications Medications Current Medications Hydralazine HCl (Apresoline) 10 mg Q6H PRN IV sbp>160mmhg Last administered on 04/01/16 11:35; Admin Dose 10 MG; Start 03/30/16 at 01:00 Ondansetron HCl (Zofran Inj) 4 mg Q6H PRN IV NAUSEA AND/OR VOMITING Last administered on 03/31/16at 16:55; Admin Dose 4 MG; Start 03/30/16 at 01:00 Famotidine (Pepcid Iv) 20 mg DAILY IV Last administered on 04/01/16 09:51; Admin Dose 20 MG; Start 03/30/16 at 09:00 Lorazepam (Ativan) 2 mg Q4H PRN IV seizures ONLY; Start 03/30/16 at 01:30 Nitrofurantoin Macrocrystals (Macrobid) 100 mg BID PO Last administered on 09:52; Admin Dose 100 MG; Start 03/30/16 at 14:30 Losartan Potassium (Cozaar) 50 mg DAILY PO Last administered on 04/01/16 09:52 ; Admin Dose 50 MG; Start 04/01/16 at 09:00 Levetiracetam (Keppra) 250 mg BID PO Last administered on 04/01/16 09:52; Admin Dose 250 MG; Start 03/31/16 at 21:00 Metoprolol Succinate (Toprol Xl) 25 mg BID PO Last administered on 04/01/16 09: 51; Admin Dose 25 MG; Start 03/31/16 at 21:00 LAN GROVES MD Apr 01, 2016 12:11
--- NOTE | 2016-04-01 14:32 | CONS ---
Date/Time of Note Date/Time of Note DATE: 04/01/16 TIME: 14:29 Assessment/Plan Assessment/Plan Chief Complaint/Hosp Course Seizure activity Problems: Additional Assessment/Plan 80 yo F with history of dementia after she sustained a fall on 03/24 sustaining left shoulder dislocation. She had an episode of stiffening and eyes rolled up, symptoms lasted about 10 seconds. Her workup showed Utox is positive for marijuana as per patient's Son she takes Marijuana Oil every night for sleep. PLAN: 1 Continue Keppra 250 mg po bid 2 Seizure precautions 3 DC planning 4 Discussed with patient's Son and her 3 daughters in datail who are present in the room. Consultation Date/Type/Reason Admit Date/Time Mar 29, 2016 at 20:56 Initial Consult Date 03/31/16 Type of Consultation: Neurology Referring Provider: YASH ALVARADO 24 HR Interval Summary Free Text/Dictation Doing well. No other episode of seizure activity. Constitutional: improved, no complaints Exam/Review of Systems Vital Signs Vitals Vital Signs Date Time Temp Pulse Resp B/P Pulse Ox O2 Delivery O2 Flow Rate FiO2 04/01/16 12:14 70 04/01/16 11:42 177/77 04/01/16 08:16 99.4 18 97 03/31/16 21:00 2.0 03/31/16 04:00 Room Air Intake and Output 03/31/16 03/31/16 04/01/16 14:59 22:59 06:59 Intake Total 1440 ml 200 ml Balance 1440 ml 200 ml Exam Constitutional: alert, well developed Psych: nl mood/affect, no complaints Head: atraumatic, normocephalic Eyes: EOMI, nl conjunctiva, nl lids, nl sclera ENMT: mucosa pink and moist, nl external ears & nose, nl lips & teeth, nl nasal mucosa & septum Neck: non-tender, supple Respiratory: clear to auscultation Cardiovascular: nl pulses, regular rate and rhythm Gastrointestinal: nl liver, spleen, non-tender, soft Genitourinary - Female: nl adnexae, nl external genitalia Musculoskeletal: nl extremities to inspection, nl gait and stance Extremities: normal pulses Neurological: GENERAL INTERN II-XII intact, nl speech Skin: nl turgor, rash or lesions Lymph: nl lymph nodes Results Result Diagram: 04/01/16 1010 04/01/16 1011 Results 24 hrs Laboratory Tests Test 03/31/16 15:10 04/01/16 10:10 04/01/16 10:11 Hepatitis B Surface Antigen NEGATIVE Hepatitis C Antibody NEGATIVE Rapid Plasma Reagin NONREACTIVE Basophils # 0.0 Basophils % 0.6 Eosinophils # 0.1 Eosinophils % 2.0 Hematocrit 36.5 L Hemoglobin 12.1 Lymphocytes # 1.9 Lymphocytes % 31.0 Mean Corpuscular Hemoglobin 29.9 Mean Corpuscular Hemoglobin Concent 33.2 Mean Corpuscular Volume 90.0 Mean Platelet Volume 7.8 Monocytes # 0.5 Monocytes % 8.7 Neutrophils # 3.5 Neutrophils % 57.7 Nucleated Red Blood Cells # 0.0 Nucleated Red Blood Cells % 0.0 Platelet Count 221 Red Blood Count 4.06 L Red Cell Distribution Width 14.2 White Blood Count 6.1 Albumin 3.5 Anion Gap 15 Blood Urea Nitrogen 18 Calcium Level 9.3 Carbon Dioxide Level 23 Chloride Level 107 Creatinine 0.78 Glucose Level 98 Phosphorus Level 3.4 Potassium Level 4.0 Sodium Level 141 Medications Medications Current Medications Hydralazine HCl (Apresoline) 10 mg Q6H PRN IV sbp>160mmhg Last administered on 04/01/16 11:35; Admin Dose 10 MG; Start 03/30/16 at 01:00 Ondansetron HCl (Zofran Inj) 4 mg Q6H PRN IV NAUSEA AND/OR VOMITING Last administered on 03/31/16at 16:55; Admin Dose 4 MG; Start 03/30/16 at 01:00 Famotidine (Pepcid Iv) 20 mg DAILY IV Last administered on 04/01/16 09:51; Admin Dose 20 MG; Start 03/30/16 at 09:00 Lorazepam (Ativan) 2 mg Q4H PRN IV seizures ONLY; Start 03/30/16 at 01:30 Nitrofurantoin Macrocrystals (Macrobid) 100 mg BID PO Last administered on 09:52; Admin Dose 100 MG; Start 03/30/16 at 14:30 Levetiracetam (Keppra) 250 mg BID PO Last administered on 04/01/16 09:52; Admin Dose 250 MG; Start 03/31/16 at 21:00 Metoprolol Succinate (Toprol Xl) 25 mg BID PO Last administered on 04/01/16t 09: 51; Admin Dose 25 MG; Start 03/31/16 at 21:00 Losartan Potassium (Cozaar) 100 mg DAILY PO ; Start 04/02/16 at 09:00 Chlorthalidone (Hygroton) 25 mg DAILY PO ; Start 04/02/16 at 09:00 COLIN DAVIS MD Apr 01, 2016 14:31
[2016-04-02] VITALS (11 sets, daily range): BP systolic 126–212; BP diastolic 64–95; PULSE 66–106; RESP 16–24
[2016-04-02] MEDS: LOSARTAN 50 MG TAB PO SCH (09:12)
[2016-04-02] MEDS: NITROFURANTOIN (SR) 100 MG CAP PO SCH ×2 (09:13→22:18)
[2016-04-02] MEDS: METOPROLOL (XL) 25 MG TAB PO SCH ×2 (09:13→21:38)
[2016-04-02] MEDS: CHLORTHALIDONE 25 MG TAB PO SCH (09:13)
[2016-04-02] MEDS: FAMOTIDINE 20 MG INJ IV SCH (09:13)
[2016-04-02] MEDS: LEVETIRACETAM 250 MG TAB PO SCH ×2 (09:13→22:18)
--- NOTE | 2016-04-02 11:20 | PDOCDIS ---
Discharge Instructions DIAGNOSIS Discharge Diagnosis: New onset seizure disorder; senile dementia Alzheimer's type; urinary tract CONDITION Patient Condition: Good HOME CARE INSTRUCTIONS: Special Diet: Pureed Thick 2000 cris ACTIVITY: Activity Restrictions: Slowly Increase Activity Do not Drive Avoid Heavy Housework FOLLOW UP/APPOINTMENTS Appointments Follow-up with your recently acquired primary care physician in [place] within 1 week. LAN GROVES MD Apr 02, 2016 11:20
[2016-04-02] MEDS ORDERED: LOSA50TA2 PO (11:23)
[2016-04-02] MEDS ORDERED: HYG25 PO (11:23)
[2016-04-02] MEDS ORDERED: LEVE250T66 PO (11:23)
[2016-04-02] MEDS ORDERED: MACBID PO (11:23)
[2016-04-02] MEDS ORDERED: METO25TA7 PO (11:23)
--- NOTE | 2016-04-02 11:27 | DS ---
Date/Time of Note Date/Time of Note DATE: 04/02/16 TIME: 11:24 Discharge Summary Admission/Discharge Info Admit Date/Time Mar 29, 2016 at 20:56 Discharge Date/Time 04/02/2016 Final Diagnosis Altered mental status due to new onset seizure disorder; urinary tract infection ; in addition has hypertension; senile dementia Alzheimer's type; exogenous administration of cannabinoids by the family Patient Condition: Fair Consults Neurology; Dr. Jj Procedures EEG; CT scan brain; MRI scan brain; carotid duplex study; CT scan cervical spine Hx of Present Illness PRESENTING COMPLAINT: altered mentation HISTORY OF PRESENTING COMPLAINT: 80 yo F with known dementia but very active and ambulant usually who has declined in mental function since she sustained a fall on 03/24, 5 days ago. It was not witnessed and family just happened to come upon her on the floor. She has been evaluated multiple times since fall and was diagnosed with a shoulder dislocation that was reduced as outpt and her shoulder has been fine since. However, family continues to note a lack of return to baseline as evidenced by a lot of sleeping and not walking at all. She is able to move all extremities but is just more lethargic. All her neurologic imaging has been negative and outpt lab work non conclusive , Today, her son witnessed a few minutes of what seemed to him as a seizure. She stiffened up and shook all over. This lasted for approximately 5-10 seconds. She was unresponsive afterwards and vomited once , hence he brought her into the ER. Initial workup here is negative so far for neurologic injury or abnormality but concerning for probable UTI and Utox is positive for marijuana; however patient denies using marijuana, medicinal or otherwise. We will verify with family. She is being admitted for further workup and mgt. Hospital Course Seizure activity Patient had EEG which was read out by Dr. Pérez are please see the report. She was placed on Keppra and actually had a remarkable improvement. Please note she also became a bit more awake and alert after we convince the family to stop administering cannabinoids while the patient was an inpatient. Her blood pressure was controlled with adjustment in her medications and she at this time is doing better. His note she had a UTI that was pansensitive she is on Macrobid for this. She is now discharged home in improved condition she has fair rehabilitation potential she is not a hazard to herself or others she is not competent for medical decision-making and her son has DURABLE POWER OF SENIOR ANALYTICAL CHEMIST for healthcare. Home Meds Active Scripts Nitrofurantoin Monohyd Macrocr (Macrobid) 100 Mg Capsr, 100 MG PO BID for 4 Days , CAP For urinary tract infection Prov:LAN GROVES MD 04/02/16 Metoprolol Succinate* (Toprol XL*) 25 Mg Tab.sr.24h, 25 MG PO BID for 30 Days For hypertension Prov:LAN GROVES MD 04/02/16 Losartan Potassium* (Cozaar*) 50 Mg Tablet, 100 MG PO DAILY for hypertension for 30 Days, TAB For hypertension Prov:LAN GROVES MD 04/02/16 Levetiracetam* (Keppra*) 250 Mg Tab, 250 MG PO BID for 30 Days, TAB To prevent seizure activity Prov:LAN GROVES MD 04/02/16 Chlorthalidone* (Hygroton*) 25 Mg Tab, 25 MG PO DAILY for 30 Days, TAB 1 in morning for hypertension Prov:LAN GROVES MD 04/02/16 Reported Medications Multivitamins* (Theragran*) 1 Tab Tab, 1 TAB PO DAILY, TAB 03/29/16 Cholecalciferol* (Vitamin D*) Unknown Strength Tablet, UNIT PO DAILY, TAB 03/29/16 Ascorbic Acid* (Vitamin C*) 500 Mg Capsule.sa, 2000 MG PO DAILY, CAP 03/29/16 Losartan Potassium* (Losartan Potassium*) 25 Mg Tablet, 25 MG PO DAILY, TAB 03/29/16 Discontinued Reported Medications Lisinopril* (Lisinopril*) 10 Mg Tablet, 20 MG PO BID 06/03/13 Clonazepam* (Klonopin*) 0.5 Mg Tab, 0.5 MG PO DAILY, TAB 06/03/13 Atenolol* (Atenolol*) 25 Mg Tablet, 25 MG PO BID 06/03/13 Follow-up Plan With new primary care physician that the son has selected in [place] of the patient has already seen 1 time. Please note the practitioner wrote the prescription for the medical marijuana is not actively involved in her care according to the family LAN GROVES MD Apr 02, 2016 11:27
[2016-04-02] MEDS: hydrALAzine 20 MG INJ IV PRN (11:38)
--- NOTE | 2016-04-02 14:24 | CONS ---
Date/Time of Note Date/Time of Note DATE: 04/02/16 TIME: 14:21 Assessment/Plan Assessment/Plan Chief Complaint/Hosp Course Seizure activity Problems: Additional Assessment/Plan 80 yo F with history of dementia after she sustained a fall on 03/24 sustaining left shoulder dislocation. She had an episode of stiffening and eyes rolled up, symptoms lasted about 10 seconds. Her workup showed Utox is positive for marijuana as per patient's Son she takes Marijuana Oil every night for sleep. PLAN: 1 Continue Keppra 250 mg po bid 2 OK to DC home and follow up as out patient 3. sign off now 4 Discussed with patient's daughter in detail who is present in the room. Consultation Date/Type/Reason Admit Date/Time Mar 29, 2016 at 20:56 Initial Consult Date 03/31/16 Type of Consultation: Neurology Referring Provider: YASH ALVARADO 24 HR Interval Summary Free Text/Dictation Doing well. No other episode of seizure activity. Constitutional: improved, no complaints Exam/Review of Systems Vital Signs Vitals Vital Signs Date Time Temp Pulse Resp B/P Pulse Ox O2 Delivery O2 Flow Rate FiO2 04/02/16 12:11 78 04/02/16 12:00 98.8 22 212/95 96 03/31/16 21:00 2.0 03/31/16 04:00 Room Air Intake and Output 04/01/16 04/01/16 04/02/16 15:00 23:00 07:00 Intake Total 600 ml 240 ml Balance 600 ml 240 ml Exam Constitutional: alert, well developed Psych: nl mood/affect, no complaints Head: atraumatic, normocephalic Eyes: EOMI, nl conjunctiva, nl lids, nl sclera ENMT: mucosa pink and moist, nl external ears & nose, nl lips & teeth, nl nasal mucosa & septum Neck: non-tender, supple Respiratory: clear to auscultation, normal air movement Cardiovascular: nl pulses, regular rate and rhythm Gastrointestinal: nl liver, spleen, non-tender, soft Musculoskeletal: nl extremities to inspection Extremities: normal pulses Neurological: other (Alert and awake, follow simple commands, moving all extremities.) Skin: nl turgor, rash or lesions Lymph: nl lymph nodes Results Result Diagram: 04/01/16 1010 04/01/16 1011 Medications Medications Current Medications Hydralazine HCl (Apresoline) 10 mg Q6H PRN IV sbp>160mmhg Last administered on 04/02/16 11:38; Admin Dose 10 MG; Start 03/30/16 at 01:00 Ondansetron HCl (Zofran Inj) 4 mg Q6H PRN IV NAUSEA AND/OR VOMITING Last administered on 03/31/16at 16:55; Admin Dose 4 MG; Start 03/30/16 at 01:00 Famotidine (Pepcid Iv) 20 mg DAILY IV Last administered on 04/02/16 09:13; Admin Dose 20 MG; Start 03/30/16 at 09:00 Lorazepam (Ativan) 2 mg Q4H PRN IV seizures ONLY; Start 03/30/16 at 01:30 Nitrofurantoin Macrocrystals (Macrobid) 100 mg BID PO Last administered on 09:13; Admin Dose 100 MG; Start 03/30/16 at 14:30 Levetiracetam (Keppra) 250 mg BID PO Last administered on 04/02/16 09:13; Admin Dose 250 MG; Start 03/31/16 at 21:00 Metoprolol Succinate (Toprol Xl) 25 mg BID PO Last administered on 04/02/16 09: 13; Admin Dose 25 MG; Start 03/31/16 at 21:00 Losartan Potassium (Cozaar) 100 mg DAILY PO Last administered on 04/02/16 09:12 ; Admin Dose 100 MG; Start 04/02/16 at 09:00 Chlorthalidone (Hygroton) 25 mg DAILY PO Last administered on 04/02/16 09:13; Admin Dose 25 MG; Start 04/02/16 at 09:00 COLIN DAVIS MD Apr 02, 2016 14:24
[2016-04-03 07:28] VITALS: BP 139/75; RESP 18
[2016-04-03] MEDS: METOPROLOL (XL) 25 MG TAB PO SCH ×2 (10:01→21:57)
[2016-04-03] MEDS: LEVETIRACETAM 250 MG TAB PO SCH ×2 (10:01→21:57)
[2016-04-03] MEDS: NITROFURANTOIN (SR) 100 MG CAP PO SCH ×2 (10:01→21:57)
[2016-04-03] MEDS: CHLORTHALIDONE 25 MG TAB PO SCH (10:02)
[2016-04-03] MEDS: LOSARTAN 50 MG TAB PO SCH (10:02)
[2016-04-03] MEDS: FAMOTIDINE 20 MG INJ IV SCH (10:03)
[2016-04-03] MEDS ORDERED: LOSA50TA6 PO (11:42)
[2016-04-03 19:00] VITALS: BP 190/91; RESP 18
[2016-04-03 21:49] VITALS: BP 158/96; RESP 18
[2016-04-04 07:31] VITALS: BP 120/65; RESP 16
[2016-04-04] MEDS: LEVETIRACETAM 250 MG TAB PO SCH ×2 (08:06→20:45)
[2016-04-04] MEDS: LOSARTAN 50 MG TAB PO SCH (08:06)
[2016-04-04] MEDS: FAMOTIDINE 20 MG INJ IV SCH (08:07)
[2016-04-04] MEDS: CHLORTHALIDONE 25 MG TAB PO SCH (08:07)
[2016-04-04] MEDS: NITROFURANTOIN (SR) 100 MG CAP PO SCH ×2 (08:07→20:45)
[2016-04-04] MEDS: METOPROLOL (XL) 25 MG TAB PO SCH ×2 (08:07→20:45)
--- NOTE | 2016-04-04 14:57 | DS ---
DATE OF ADMISSION: 03/29/2016 DATE OF DISCHARGE: 04/03/2016 ADDENDUM CONSULTANTS: Dr. Wynn. Please see discharge summary which was done by Dr. Laurent Mcdonald on 04/02. FINAL DIAGNOSIS: 1. Altered mental status secondary to new onset of seizure disorder. 2. New onset of seizure disorder. 3. Urinary tract infection. 4. Essential hypertension. 5. Dementia, Alzheimer. 6. Exogenous administration of cannabinoids by the family. PROCEDURES: 1. EEG. 2. CT of the brain. 3. MRI of the brain. 4. Carotid duplex artery. 5. CT scan of the cervical spine. HOSPITAL COURSE: This is an 80-year-old female who resides at home with her daughter and a caretake r. She was brought into the [facility] Emergency Room secondary to having decline in menta l function since she sustained a fall on 03/24/2016. The fall was not witnessed by the family. The y just happened to come upon her on the floor. Patient was evaluated multiple times since the fall and was diagnosed with a shoulder dislocation was reduced as an outpatient. Her shoulder has been f ine since. However, the family continues to note lack of return to baseline mentation and as eviden juanis by a lot of sleeping and not walking at all. The patient was brought into the emergency room of [facility] where CT of the brain was obtained which showed chronic microvascular ischemic changes. No definite acute abnormalities. MRI of the brain showed no acute intracranial h emorrhage, infarction or mass, moderate chronic small-vessel ischemic changes, moderate to more gene ralized cerebral volume loss including bilateral hippocampal atrophy, right greater than left. Carot id Doppler showed minimal amount of plaque present within the visualized portion of both internal ca rotid arteries; however, there is no evidence of flow alteration or hemodynamically significant sten osis. Cervical spine CT showed degenerative changes, no definite fracture. The patient was seen an d evaluated by neurology. EEG was obtained which showed abnormal EEG due to generalized bihemispher ic background slowing with the left frontal sharps which could be epeirogenic. The patient was plac ed on Keppra 250 mg p.o. b.i.d. The patient was also found to have episodes of hypertension. This is when the patient was seen and evaluated by physical therapy and is likely secondary to aggravatio n although upon rest, the patient's blood pressure has been in the mid 130s and mid 140s. This morn ing, the patient's blood pressure was found to be 220 while she was seen by physical therapy, orquidea saini upon the patient evaluation after physical therapy and patient was at rest, her blood pressure re turned back to 130s. At this time, the patient is medically in fair condition to return back home [facility] home health, which has been arranged. The patient will need 24-hour care at home. [facility] to the family, although they have refused. At [facility]. MEDICATIONS: 1. Chlorthalidone 25 mg 2. Keppra 250 mg. 3. Losartan 50 mg b.i.d. 4. Toprol-XL 25 mg p.o. b.i.d. 5. Macrobid 100 mg. 6. Vitamin D. 7. Multivitamin. ALLERGIES: NO KNOWN DRUG ALLERGIES. PHYSICAL EXAMINATION: Temperature 98.89, pulse 78, respiration 18, blood pressure 129/75, oxygen sa turation 95% on room air. Also see Dr. Laurent Mcdonald discharge summary on 04/02/2016. Dictated By: PRASHANTH CHAVEZ/ARNOL Conf#: [id number] DID#: [id number]
--- NOTE | 2016-04-04 15:45 | DS ---
Date/Time of Note Date/Time of Note DATE: 04/04/16 TIME: 15:40 Discharge Summary Admission/Discharge Info Admit Date/Time Mar 29, 2016 at 20:56 Discharge Date/Time 04/04/16 Final Diagnosis FINAL DIAGNOSIS: 1. Altered mental status secondary to new onset of seizure disorder. 2. New onset of seizure disorder. 3. Urinary tract infection. 4. Essential hypertension. 5. Dementia, Alzheimer. 6. Exogenous administration of cannabinoids by the family. Patient Condition: Fair Hx of Present Illness PRESENTING COMPLAINT: altered mentation HISTORY OF PRESENTING COMPLAINT: 80 yo F with known dementia but very active and ambulant usually who has declined in mental function since she sustained a fall on 03/24, 5 days ago. It was not witnessed and family just happened to come upon her on the floor. She has been evaluated multiple times since fall and was diagnosed with a shoulder dislocation that was reduced as outpt and her shoulder has been fine since. However, family continues to note a lack of return to baseline as evidenced by a lot of sleeping and not walking at all. She is able to move all extremities but is just more lethargic. All her neurologic imaging has been negative and outpt lab work non conclusive , Today, her son witnessed a few minutes of what seemed to him as a seizure. She stiffened up and shook all over. This lasted for approximately 5-10 seconds. She was unresponsive afterwards and vomited once , hence he brought her into the ER. Initial workup here is negative so far for neurologic injury or abnormality but concerning for probable UTI and Utox is positive for marijuana; however patient denies using marijuana, medicinal or otherwise. We will verify with family. She is being admitted for further workup and mgt. Hospital Course Please see addendum for discharge summary which was done by me on 04/03/2016 As per patient's family request on 04/02/2016 and in the morning of 04/03/2016 they were adamant that they would like to take the patient home with home health and with family although during the afternoon when the discharge will set up the family decided that they would like to transfer the patient to acute rehab at another facility. At this time waiting for PT/OT documentation so he can be sent to the facility and awaiting for the response. If the patient is not accepted to acute rehab patient will be transferred to snf facility as per family request. Home Meds Active Scripts Losartan Potassium* (Losartan Potassium*) 50 Mg Tablet, 50 MG PO BID, #60 TAB Prov:PRASHANTH CID MD 04/03/16 Nitrofurantoin Monohyd Macrocr (Macrobid) 100 Mg Capsr, 100 MG PO BID for 4 Days , CAP For urinary tract infection Prov:LAN GROVES MD 04/02/16 Metoprolol Succinate* (Toprol XL*) 25 Mg Tab.sr.24h, 25 MG PO BID for 30 Days For hypertension Prov:LAN GROVES MD 04/02/16 Levetiracetam* (Keppra*) 250 Mg Tab, 250 MG PO BID for 30 Days, TAB To prevent seizure activity Prov:LAN GROVES MD 04/02/16 Chlorthalidone* (Hygroton*) 25 Mg Tab, 25 MG PO DAILY for 30 Days, TAB 1 in morning for hypertension Prov:LAN GROVES MD 04/02/16 Reported Medications Multivitamins* (Theragran*) 1 Tab Tab, 1 TAB PO DAILY, TAB 03/29/16 Cholecalciferol* (Vitamin D*) Unknown Strength Tablet, UNIT PO DAILY, TAB 03/29/16 Discontinued Reported Medications Ascorbic Acid* (Vitamin C*) 500 Mg Capsule.sa, 2000 MG PO DAILY, CAP 03/29/16 Losartan Potassium* (Losartan Potassium*) 25 Mg Tablet, 25 MG PO DAILY, TAB 03/29/16 Lisinopril* (Lisinopril*) 10 Mg Tablet, 20 MG PO BID 06/03/13 Clonazepam* (Klonopin*) 0.5 Mg Tab, 0.5 MG PO DAILY, TAB 06/03/13 Atenolol* (Atenolol*) 25 Mg Tablet, 25 MG PO BID 06/03/13 PARSHANTH CID MD Apr 04, 2016 15:45
[2016-04-04 19:36] VITALS: BP 171/76; RESP 18
[2016-04-04 20:05] VITALS: BP 171/76; PULSE 64; RESP 18
[2016-04-04 21:00] VITALS: BP 131/81; PULSE 82
[2016-04-05 07:58] VITALS: BP 136/72; RESP 18
[2016-04-05] MEDS: FAMOTIDINE 20 MG INJ IV SCH (09:21)
[2016-04-05] MEDS: METOPROLOL (XL) 25 MG TAB PO SCH ×2 (09:22→21:27)
[2016-04-05] MEDS: LEVETIRACETAM 250 MG TAB PO SCH ×2 (09:22→21:26)
[2016-04-05] MEDS: NITROFURANTOIN (SR) 100 MG CAP PO SCH ×2 (09:22→21:26)
[2016-04-05] MEDS: LOSARTAN 50 MG TAB PO SCH (09:22)
[2016-04-05] MEDS: CHLORTHALIDONE 25 MG TAB PO SCH (09:23)
--- NOTE | 2016-04-05 13:30 | PN ---
Date/Time of Note Date/Time of Note DATE: 04/05/16 TIME: 13:23 Assessment/Plan VTE Prophylaxis VTE Prophylaxis Intervention: SCD's Lines/Catheters [facility] Saline Lock Urinary Cath still in place: No Assessment/Plan Chief Complaint/Hosp Course FINAL DIAGNOSIS: 1. Altered mental status secondary to new onset of seizure disorder. 2. New onset of seizure disorder. 3. Urinary tract infection. 4. Essential hypertension. 5. Dementia, Alzheimer. 6. Exogenous administration of cannabinoids by the family. Patient is awaiting for discharge planning to senior living facility versus acute rehab Waiting for acute rehab evaluation and acceptance This is the addendum for my discharge summary which was done on 04/03/2016 Problems: Subjective 24 Hr Interval Summary Free Text/Dictation No acute changes Patient was seen by Occupational Therapy and physical therapy Waiting for acute rehab placement Exam/Review of Systems Vital Signs Vitals Vital Signs Date Time Temp Pulse Resp B/P Pulse Ox O2 Delivery O2 Flow Rate FiO2 04/05/16 07:58 97.7 73 18 136/72 99 04/04/16 20:05 Room Air Intake and Output 04/04/16 04/04/16 04/05/16 15:00 23:00 07:00 Intake Total 360 ml 100 ml Balance 360 ml 100 ml Exam General: The patient is cachectic, Not in acute distress. HEENT: Atraumatic, normocephalic. The pupils are equal and round . Neck: Supple with full range of motion. Chest: Normal expansion of the thorax during inspiration Lungs: Clear to auscultation bilaterally Heart: Normal S1-S2, Regular rhythm and rate. Abdomen: Soft , nontender, nondistended , bowel sounds are present. Extremities: Normal to inspection, minimal edema no cyanosis Neurologic:The patient is awake, and oriented Results Result Diagram: 04/01/16 1010 04/01/16 1011 Medications Medications Current Medications Hydralazine HCl (Apresoline) 10 mg Q6H PRN IV sbp>160mmhg Last administered on 04/02/16t 11:38; Admin Dose 10 MG; Start 03/30/16 at 01:00 Ondansetron HCl (Zofran Inj) 4 mg Q6H PRN IV NAUSEA AND/OR VOMITING Last administered on 03/31/16at 16:55; Admin Dose 4 MG; Start 03/30/16 at 01:00 Famotidine (Pepcid Iv) 20 mg DAILY IV Last administered on 04/05/16 09:21; Admin Dose 20 MG; Start 03/30/16 at 09:00 Lorazepam (Ativan) 2 mg Q4H PRN IV seizures ONLY; Start 03/30/16 at 01:30 Nitrofurantoin Macrocrystals (Macrobid) 100 mg BID PO Last administered on 09:22; Admin Dose 100 MG; Start 03/30/16 at 14:30 Levetiracetam (Keppra) 250 mg BID PO Last administered on 04/05/16 09:22; Admin Dose 250 MG; Start 03/31/16 at 21:00 Metoprolol Succinate (Toprol Xl) 25 mg BID PO Last administered on 04/05/16 09: 22; Admin Dose 25 MG; Start 03/31/16 at 21:00 Losartan Potassium (Cozaar) 100 mg DAILY PO Last administered on 04/05/16 09:22 ; Admin Dose 100 MG; Start 04/02/16 at 09:00 Chlorthalidone (Hygroton) 25 mg DAILY PO Last administered on 04/05/16 09:23; Admin Dose 25 MG; Start 04/02/16 at 09:00 PRASHANTH CID MD Apr 05, 2016 13:30
[2016-04-05 21:19] VITALS: BP 148/68; RESP 20
[2016-04-06 07:59] VITALS: BP 116/55; RESP 16
[2016-04-06] MEDS: LEVETIRACETAM 250 MG TAB PO SCH (10:17)
[2016-04-06] MEDS: FAMOTIDINE 20 MG INJ IV SCH (10:17)
[2016-04-06] MEDS: NITROFURANTOIN (SR) 100 MG CAP PO SCH (10:17)
[2016-04-06] MEDS: METOPROLOL (XL) 25 MG TAB PO SCH (10:24)
[2016-04-06] MEDS: CHLORTHALIDONE 25 MG TAB PO SCH (10:24)
[2016-04-06 10:25] VITALS: BP 146/67; PULSE 62
[2016-04-06 12:11] VITALS: BP 169/73; PULSE 60
[2016-04-06] MEDS: LOSARTAN 50 MG TAB PO SCH (12:19)
--- NOTE | 2016-04-06 14:40 | PN ---
Date/Time of Note Date/Time of Note DATE: 04/06/16 TIME: 10:30 am Assessment/Plan VTE Prophylaxis VTE Prophylaxis Intervention: SCD's Lines/Catheters IV [facility]from [facility] Saline Lock Urinary Cath still in place: No Assessment/Plan Chief Complaint/Hosp Course FINAL DIAGNOSIS: 1. Altered mental status secondary to new onset of seizure disorder. 2. New onset of seizure disorder. 3. Urinary tract infection. 4. Essential hypertension. 5. Dementia, Alzheimer. 6. Exogenous administration of cannabinoids by the family. Discharge to acute rehab today This is the addendum for my discharge summary which was done on 04/03/2016 Problems: Subjective 24 Hr Interval Summary Free Text/Dictation No acute changes Patient is moderate assist with ambulation Tolerating oral intake Exam/Review of Systems Vital Signs Vitals Vital Signs Date Time Temp Pulse Resp B/P Pulse Ox O2 Delivery O2 Flow Rate FiO2 04/06/16 12:11 97.4 60 169/73 04/06/16 07:59 16 96 04/04/16 20:05 Room Air Intake and Output 04/05/16 04/05/16 04/06/16 15:00 23:00 07:00 Intake Total 540 ml 580 ml Balance 540 ml 580 ml Exam General: The patient is cachectic with no acute distress HEENT: Atraumatic, normocephalic. The pupils are equal and round . Neck: Supple with full range of motion. Chest: Normal expansion of the thorax during inspiration Lungs: Clear to auscultation bilaterally Heart: Normal S1-S2, Regular rhythm and rate. Abdomen: Soft , nontender, nondistended , bowel sounds are present. Extremities: Normal to inspection, no edema no cyanosis Neurologic: mental status at baseline,The patient is awake, alert PRASHANTH CID MD Apr 06, 2016 14:39
== END 2016-04-06 12:55 | DRG 100 ==
LOC: E/R 16:33 → MS4 20:56 → MS2 04-02 19:05
PROVIDERS: ADMIT Family Medicine; ATTEND Family Medicine
DX: G40.909 Epilepsy, unspecified, not intractable, without status epilepticus (principal); G93.40 Encephalopathy, unspecified; N39.0 Urinary tract infection, site not specified; G30.1 Alzheimer's disease with late onset; F02.81 Dementia in other diseases classified elsewhere, unspecified severity, with behavioral disturbance; I10 Essential (primary) hypertension; S00.93XD Contusion of unspecified part of head, subsequent encounter; W19.XXXA Unspecified fall, initial encounter; F41.9 Anxiety disorder, unspecified; F12.90 Cannabis use, unspecified, uncomplicated; R11.2 Nausea with vomiting, unspecified; R26.2 Difficulty in walking, not elsewhere classified
CPT/HCPCS: 36415; 70450; 70551; 71010; 72125; 72170; 73520; 80053; 80061; 80069; 81001; 81003; 82140; 82150; 83036; 83690; 83735; 84439; 84443; 84484; 85025; 85610; 85730; 86592; 86803; 87086; 87340; 92610; 93005; 93306; 93880; 95819; 96374; 96375; 97001; 97116; 97167; 97530; G0478; G0479; J0360; J0696; J2060; J2405; J7030